=== PATIENT | female | born 1975 | race Caucasian/White ===

== ENCOUNTER 2021-12-07 13:09 | Inpatient (IN) ==
[2021-12-07] MEDS ORDERED: Iopamidol - 370 500 ML MLS IVP ONE (16:15)
[2021-12-07] MEDS ORDERED: Ondansetron 4 MG/2 ML VIAL IVP ONE (16:15)
[2021-12-07] MEDS ORDERED: 0.9 % Sodium Chloride 1,000 ML IVC ONE (16:15)
[2021-12-07] MEDS ORDERED: Morphine Sulfate 2 MG/ML SYRINGE IVP ONE (16:15)
[2021-12-07 16:45] LABS: Hematocrit 47.8 % (35.3-44.9); Hemoglobin 16.7 g/dL (11.5-15.4); Mean Corpuscular HGB Conc 34.9 g/dL (31.6-35.5); Mean Corpuscular Hemoglobin 30.5 pg (28.0-33.3); Mean Corpuscular Volume 87.4 fL (83.0-100.0); Mean Platelet Volume 11.8 fL (9.4-12.4); Platelet Count 243 K/mcL (140-400); Red Blood Count 5.47 M/mcL (3.82-4.97); White Blood Count 3.4 K/mcL (4.3-11.1)
[2021-12-07 17:06] LABS: Lymphocytes # 0.5 K/mcL (0.6-4.6); Monocytes # 0.4 K/mcL (0.0-1.3); Neutrophils # 2.4 K/mcL (1.6-8.9); Platelet Estimate Normal (Normal); Reactive Lymphocytes Present (Not Present)
[2021-12-07 17:32] LABS: Albumin 4.1 g/dL (3.5-5.7); Albumin/Globulin Ratio 1.6 (1.1-2.2); Bilirubin,Direct 0.6 mg/dL (0.0-0.2); Bilirubin,Indirect 1.2 mg/dL (0.0-1.0); Bilirubin,Total 1.8 mg/dL (0.3-1.0); Calcium 9.6 mg/dL (8.6-10.3); Globulin 2.5 g/dL (2.4-3.5); Potassium 3.5 mEq/L (3.5-5.1); Total Protein 6.6 g/dL (6.4-8.9)
[2021-12-07] MEDS ORDERED: *HR* HYDROmorphone (PF) 1 MG/ML SYRINGE IVP ONE (18:25)
[2021-12-07] MEDS ORDERED: Piperacillin/Tazobactam 3.375 GM in 0.9 % Sodium Chloride Mini Bag 100 ML IVPB ONE (18:25)
[2021-12-07] MEDS ORDERED: Ondansetron 4 MG/2 ML VIAL IVP PRN (18:50)
[2021-12-07] MEDS ORDERED: Naloxone 0.4 MG/ML INJ IVP PRN (18:50)
[2021-12-07] MEDS ORDERED: Morphine Sulfate 2 MG/ML SYRINGE IVP PRN (18:52)
[2021-12-07] MEDS ORDERED: 0.9 % Sodium Chloride 500 ML IVC ONE (22:49)
[2021-12-07] MEDS: *HR* Promethazine 25 MG/ML VIAL IM PRN (23:06)
[2021-12-07] MEDS: 0.9 % Sodium Chloride 1,000 ML IVC SCH (23:42)
[2021-12-08 01:01] LABS: Bilirubin,Urine Negative (Negative); Blood,Urine Trace (Negative); Clarity,Urine Clear (Clear); Color,Urine Yellow (Yellow); Glucose,Urine (UA) 50 mg/dL (Normal); Ketones,Urine 20 mg/dL (Negative); Leukocyte Esterase,Urine Negative (Negative); Mucus,Urine Few per lpf (None-Few); Nitrite,Urine Negative (Negative); Protein,Urine 30 mg/dL (Neg-Trace); Specific Gravity,Urine > 1.030 (1.010-1.025); Squamous Epithelial Cell,Urine Few per hpf (None-Few); WBC,Urine 0-3 per hpf (0-3)
[2021-12-08 01:03] LABS: Basophils # 0.1 K/mcL (0.0-0.2); Basophils % 0.6 %; Eosinophils % 0.5 %; Hematocrit 48.8 % (35.3-44.9); Hemoglobin 16.7 g/dL (11.5-15.4); Immature Granulocytes % 0.4 % (0-4); Lymphocytes # 0.3 K/mcL (0.6-4.6); Lymphocytes % 3.2 %; Mean Corpuscular HGB Conc 34.2 g/dL (31.6-35.5); Mean Corpuscular Hemoglobin 30.1 pg (28.0-33.3); Mean Corpuscular Volume 88.1 fL (83.0-100.0); Monocytes # 0.4 K/mcL (0.0-1.3); Monocytes % 5.4 %; Neutrophils # 7.4 K/mcL (1.6-8.9); Platelet Count 220 K/mcL (140-400); Red Blood Count 5.54 M/mcL (3.82-4.97); Red Cell Distribution Width 12.2 % (11.5-14.5); Segmented Neutrophils % 89.9 %
[2021-12-08 01:07] LABS: White Blood Count 8.2 K/mcL (4.3-11.1)
[2021-12-08 01:50] LABS: Cannabinoid Screen,Urine Positive ng/mL (Cutoff = 50); Opiate Screen,Urine Positive ng/mL (Cutoff=300)
[2021-12-08 01:51] LABS: Amphetamine Screen,Urine Negative ng/mL (Cutoff=1000); Barbiturate Screen,Urine Negative ng/mL (Cutoff=200); Cocaine Screen,Urine Negative ng/mL (Cutoff= 300); Phencyclidine Screen,Urine Negative ng/mL (Cutoff=25)
[2021-12-08 01:52] LABS: Benzodiazepines Screen,Urine Negative ng/mL (Cutoff=300)
[2021-12-08] MEDS: Piperacillin/Tazobactam 3.375 GM in 0.9 % Sodium Chloride Mini Bag 100 ML IVPB SCH ×3 (03:21→19:43)
[2021-12-08 03:57] LABS: Albumin 3.3 g/dL (3.5-5.7); Albumin/Globulin Ratio 1.5 (1.1-2.2); Bilirubin,Total 1.3 mg/dL (0.3-1.0); Chol/HDL Ratio 2.4 (0-4.9); Globulin 2.2 g/dL (2.4-3.5); Magnesium 1.6 mg/dL (1.6-2.6); Potassium 3.4 mEq/L (3.5-5.1); Total Protein 5.5 g/dL (6.4-8.9)
[2021-12-08] MEDS ORDERED: 0.9 % Sodium Chloride 500 ML IVC ONE (07:54)
[2021-12-08] MEDS: 0.9 % Sodium Chloride 1,000 ML IVC SCH ×2 (08:02→16:08)
[2021-12-08] MEDS: *HR* Promethazine 25 MG/ML VIAL IM PRN (16:01)
[2021-12-09] MEDS: 0.9 % Sodium Chloride 1,000 ML IVC SCH ×3 (00:24→15:18)
[2021-12-09] MEDS: *HR* Promethazine 25 MG/ML VIAL IM PRN ×4 (00:40→22:25)
[2021-12-09] MEDS: Simethicone 80 MG TAB.CHEW PO PRN ×2 (00:40→15:58)
[2021-12-09] MEDS: Piperacillin/Tazobactam 3.375 GM in 0.9 % Sodium Chloride Mini Bag 100 ML IVPB SCH ×3 (02:00→19:00)
[2021-12-09 06:13] LABS: Basophils # 0.1 K/mcL (0.0-0.2); Basophils % 0.5 %; Hematocrit 40.2 % (35.3-44.9); Immature Granulocytes % 1.6 % (0-4); Lymphocytes % 2.6 %; Mean Corpuscular HGB Conc 33.3 g/dL (31.6-35.5); Mean Corpuscular Hemoglobin 29.8 pg (28.0-33.3); Mean Corpuscular Volume 89.5 fL (83.0-100.0); Mean Platelet Volume 12.2 fL (9.4-12.4); Monocytes # 0.4 K/mcL (0.0-1.3); Monocytes % 2.7 %; Neutrophils # 12.3 K/mcL (1.6-8.9); Platelet Count 185 K/mcL (140-400); Red Blood Count 4.49 M/mcL (3.82-4.97); Red Cell Distribution Width 12.6 % (11.5-14.5); Segmented Neutrophils % 92.6 %
[2021-12-09 06:19] LABS: Hemoglobin 13.4 g/dL (11.5-15.4); Lymphocytes # 0.4 K/mcL (0.6-4.6); White Blood Count 13.3 K/mcL (4.3-11.1)
[2021-12-09 06:53] LABS: BUN/Creatinine Ratio 18 (6-26); Bilirubin,Total 1.1 mg/dL (0.3-1.0); Blood Urea Nitrogen 14 mg/dL (6-20); Calcium 7.5 mg/dL (8.6-10.3); Carbon Dioxide 25 mEq/L (23-29); Chloride 109 mEq/L (98-107); Glucose 85 mg/dL (70-105); Osmolality,Calculated 286 (280-300); Potassium 3.3 mEq/L (3.5-5.1); Sodium 138 mEq/L (136-145)
[2021-12-09 06:54] LABS: Alanine Aminotransferase 10 Units/L (7-52); Albumin 2.8 g/dL (3.5-5.7); Alkaline Phosphatase 61 Units/L (34-104); Aspartate Amino Transferase 33 Units/L (13-39)
[2021-12-09 07:33] LABS: Albumin/Globulin Ratio 1.3 (1.1-2.2); Globulin 2.2 g/dL (2.4-3.5)
[2021-12-09] MEDS ORDERED: Potassium Chloride Elixir 20 MEQ/15 ML UDC PO ONE (07:51)
[2021-12-09 09:21] LABS: Magnesium 1.7 mg/dL (1.6-2.6); Phosphorous 1.5 mg/dL (2.7-4.5)
[2021-12-09] MEDS ORDERED: Iopamidol - 370 500 ML MLS IVP ONE ×2 (10:36→11:15)
[2021-12-09] MEDS: polyethylene glycoL 3350 17 GM POWD.PACK PO SCH ×2 (11:08→21:40)
[2021-12-10 03:10] LABS: Basophils % 0.2 %; Hematocrit 35.3 % (35.3-44.9); Hemoglobin 12.2 g/dL (11.5-15.4); Immature Granulocytes % 0.5 % (0-4); Lymphocytes # 0.4 K/mcL (0.6-4.6); Lymphocytes % 2.8 %; Mean Corpuscular HGB Conc 34.6 g/dL (31.6-35.5); Mean Corpuscular Hemoglobin 30.7 pg (28.0-33.3); Mean Corpuscular Volume 88.7 fL (83.0-100.0); Mean Platelet Volume 11.9 fL (9.4-12.4); Monocytes # 0.3 K/mcL (0.0-1.3); Monocytes % 2.5 %; Neutrophils # 12.5 K/mcL (1.6-8.9); Platelet Count 173 K/mcL (140-400); Red Blood Count 3.98 M/mcL (3.82-4.97); Red Cell Distribution Width 12.5 % (11.5-14.5); White Blood Count 13.3 K/mcL (4.3-11.1)
[2021-12-10 03:22] LABS: Alanine Aminotransferase 15 Units/L (7-52); Albumin 2.7 g/dL (3.5-5.7); Albumin/Globulin Ratio 1.2 (1.1-2.2); Alkaline Phosphatase 87 Units/L (34-104); Aspartate Amino Transferase 54 Units/L (13-39); BUN/Creatinine Ratio 15 (6-26); Blood Urea Nitrogen 10 mg/dL (6-20); Calcium 8.3 mg/dL (8.6-10.3); Carbon Dioxide 23 mEq/L (23-29); Chloride 108 mEq/L (98-107); Globulin 2.3 g/dL (2.4-3.5); Glucose 68 mg/dL (70-105); Magnesium 2.2 mg/dL (1.6-2.6); Osmolality,Calculated 283 (280-300); Phosphorous 1.4 mg/dL (2.7-4.5); Potassium 3.2 mEq/L (3.5-5.1); Sodium 138 mEq/L (136-145)
[2021-12-10] MEDS: Piperacillin/Tazobactam 3.375 GM in 0.9 % Sodium Chloride Mini Bag 100 ML IVPB SCH ×3 (03:30→20:27)
[2021-12-10 03:49] LABS: Platelet Estimate Normal (Normal)
[2021-12-10] MEDS: 0.9 % Sodium Chloride 1,000 ML IVC SCH ×2 (06:55→17:51)
[2021-12-10] MEDS: *HR* Promethazine 25 MG/ML VIAL IM PRN (06:57)
[2021-12-10] MEDS: polyethylene glycoL 3350 17 GM POWD.PACK PO SCH ×2 (09:37→20:29)
[2021-12-10] MEDS ORDERED: CefOXitin 1,000 MG VIAL ONE ×2 (12:22→13:36)
[2021-12-10] MEDS ORDERED: *HR* FentaNYL (PF) 100 MCG/2 ML VIAL ONE (12:27)
[2021-12-10] MEDS ORDERED: *HR* Propofol 200 MG/20 ML VIAL IVP ONE (12:27)
[2021-12-10] MEDS ORDERED: *HR* Midazolam HCl 2 MG/2 ML VIAL ONE (12:27)
[2021-12-10] MEDS ORDERED: Lidocaine -MPF 2% 2 ML VIAL ONE (12:31)
[2021-12-10] MEDS ORDERED: Lidocaine HCL 4 ML Topical Solution (Laryng-O-Jet Kit Sterile Pak) TP ONE (12:32)
[2021-12-10] MEDS ORDERED: *HR* Rocuronium Bromide 50 MG/5 ML VIAL ONE (12:32)
[2021-12-10] MEDS ORDERED: *HR* HYDROmorphone PF 0.5 MG/0.5 ML SYRINGE IVP PRN ×2 (12:42→16:29)
[2021-12-10] MEDS ORDERED: Ondansetron 4 MG/2 ML VIAL IVP PRN ×2 (12:42→16:29)
[2021-12-10] MEDS ORDERED: Ketamine HCL *QUVA* 50mg (1mL) SYRINGE ONE (13:28)
[2021-12-10] MEDS ORDERED: Ondansetron 4 MG/2 ML VIAL ONE (13:28)
[2021-12-10] MEDS ORDERED: Acetaminophen IV 1,000 MG/100 ML BAG IVPB ONE (13:30)
[2021-12-10] MEDS ORDERED: *HR* Metoprolol 5 MG/5 ML VIAL IVP ONE (13:37)
[2021-12-10] MEDS ORDERED: Sugammadex Sodium 200 MG/2 ML VIAL IV ONE (14:20)
[2021-12-10] MEDS ORDERED: Ketorolac 30 MG/ML VIAL ONE (14:21)
[2021-12-10] MEDS ORDERED: *HR* HYDROMORPHONE 2 MG/ML VIAL ONE (14:39)
[2021-12-10] MEDS ORDERED: Naloxone 0.4 MG/ML INJ IVP PRN (16:29)
[2021-12-10] MEDS: Morphine Sulfate 2 MG/ML SYRINGE IVP PRN (22:59)
[2021-12-11] MEDS: 0.9 % Sodium Chloride 1,000 ML IVC SCH ×2 (02:25→10:33)
[2021-12-11] MEDS: Piperacillin/Tazobactam 3.375 GM in 0.9 % Sodium Chloride Mini Bag 100 ML IVPB SCH ×3 (02:32→22:00)
[2021-12-11] MEDS: *HR* Promethazine 25 MG/ML VIAL IM PRN (02:34)
[2021-12-11] MEDS: Fluconazole 200 MG/100 ML 200 MG/100 ML BAG IVPB SCH (10:33)
[2021-12-11 11:32] LABS: Basophils % 0.2 %; Hematocrit 36.6 % (35.3-44.9); Hemoglobin 12.3 g/dL (11.5-15.4); Immature Granulocytes % 1.6 % (0-4); Lymphocytes # 0.5 K/mcL (0.6-4.6); Lymphocytes % 3.6 %; Mean Corpuscular HGB Conc 33.6 g/dL (31.6-35.5); Mean Corpuscular Hemoglobin 29.9 pg (28.0-33.3); Mean Corpuscular Volume 88.8 fL (83.0-100.0); Mean Platelet Volume 11.2 fL (9.4-12.4); Monocytes # 0.7 K/mcL (0.0-1.3); Neutrophils # 13.1 K/mcL (1.6-8.9); Platelet Count 216 K/mcL (140-400); Red Blood Count 4.12 M/mcL (3.82-4.97); Red Cell Distribution Width 13.3 % (11.5-14.5); Segmented Neutrophils % 89.6 %; White Blood Count 14.6 K/mcL (4.3-11.1)
[2021-12-11 11:48] LABS: Alanine Aminotransferase 13 Units/L (7-52); Albumin 2.2 g/dL (3.5-5.7); Alkaline Phosphatase 66 Units/L (34-104); Aspartate Amino Transferase 37 Units/L (13-39); BUN/Creatinine Ratio 16 (6-26); Bilirubin,Total 0.4 mg/dL (0.3-1.0); Blood Urea Nitrogen 10 mg/dL (6-20); Calcium 7.4 mg/dL (8.6-10.3); Carbon Dioxide 21 mEq/L (23-29); Chloride 113 mEq/L (98-107); Globulin 2.1 g/dL (2.4-3.5); Glucose 93 mg/dL (70-105); Osmolality,Calculated 291 (280-300); Potassium 3.5 mEq/L (3.5-5.1); Sodium 141 mEq/L (136-145); Total Protein 4.3 g/dL (6.4-8.9)
[2021-12-11 11:49] LABS: Magnesium 2.1 mg/dL (1.6-2.6); Phosphorous 1.3 mg/dL (2.7-4.5)
[2021-12-11] MEDS ORDERED: Potassium Phosphate 44 MEQ in 0.9 % Sodium Chloride 250 ML IVPB ONE (11:54)
[2021-12-11] MEDS: polyethylene glycoL 3350 17 GM POWD.PACK PO SCH ×3 (13:17→22:44)
[2021-12-11] MEDS: Morphine Sulfate 2 MG/ML SYRINGE IVP PRN ×2 (13:27→17:48)
[2021-12-12] MEDS: Piperacillin/Tazobactam 3.375 GM in 0.9 % Sodium Chloride Mini Bag 100 ML IVPB SCH ×3 (02:36→22:23)
[2021-12-12] MEDS: 0.9 % Sodium Chloride 1,000 ML IVC SCH (02:37)
[2021-12-12] MEDS: Morphine Sulfate 2 MG/ML SYRINGE IVP PRN (02:38)
[2021-12-12 05:01] LABS: Basophils % 0.2 %; Eosinophils % 0.1 %; Hematocrit 30.3 % (35.3-44.9); Immature Granulocytes % 0.9 % (0-4); Lymphocytes # 0.9 K/mcL (0.6-4.6); Mean Corpuscular HGB Conc 33.7 g/dL (31.6-35.5); Mean Corpuscular Hemoglobin 29.7 pg (28.0-33.3); Mean Corpuscular Volume 88.1 fL (83.0-100.0); Monocytes # 0.7 K/mcL (0.0-1.3); Monocytes % 6.9 %; Platelet Count 183 K/mcL (140-400); Red Blood Count 3.44 M/mcL (3.82-4.97); Red Cell Distribution Width 13.4 % (11.5-14.5); Segmented Neutrophils % 82.9 %; White Blood Count 9.7 K/mcL (4.3-11.1)
[2021-12-12 05:05] LABS: Hemoglobin 10.2 g/dL (11.5-15.4)
[2021-12-12 05:19] LABS: BUN/Creatinine Ratio 20 (6-26); Blood Urea Nitrogen 11 mg/dL (6-20); Calcium 7.6 mg/dL (8.6-10.3); Carbon Dioxide 22 mEq/L (23-29); Chloride 116 mEq/L (98-107); Glucose 92 mg/dL (70-105); Osmolality,Calculated 299 (280-300); Potassium 3.4 mEq/L (3.5-5.1); Sodium 145 mEq/L (136-145)
[2021-12-12 05:35] LABS: Platelet Estimate Normal (Normal)
[2021-12-12] MEDS: Ondansetron 4 MG/2 ML VIAL IVP PRN ×2 (09:31→18:32)
[2021-12-12] MEDS: Pantoprazole 40 MG VIAL IVP SCH (09:32)
[2021-12-12] MEDS: D5% in 0.45% NACL 1,000 ML IVC SCH ×2 (09:39→18:13)
[2021-12-12] MEDS: Fluconazole 200 MG/100 ML 200 MG/100 ML BAG IVPB SCH (09:43)
[2021-12-12] MEDS: polyethylene glycoL 3350 17 GM POWD.PACK PO SCH ×2 (09:59→22:25)
[2021-12-12 12:43] LABS: Magnesium 1.9 mg/dL (1.6-2.6); Phosphorous 1.4 mg/dL (2.7-4.5)
[2021-12-12] MEDS: *HR* Promethazine 25 MG/ML VIAL IM PRN (21:07)
[2021-12-13] MEDS: D5% in 0.45% NACL 1,000 ML IVC SCH ×3 (02:23→20:19)
[2021-12-13] MEDS: *HR* Promethazine 25 MG/ML VIAL IM PRN ×2 (02:34→10:23)
[2021-12-13] MEDS: Piperacillin/Tazobactam 3.375 GM in 0.9 % Sodium Chloride Mini Bag 100 ML IVPB SCH ×3 (03:36→18:20)
[2021-12-13 04:11] LABS: Hematocrit 28.6 % (35.3-44.9); Hemoglobin 9.8 g/dL (11.5-15.4); Mean Corpuscular HGB Conc 34.3 g/dL (31.6-35.5); Mean Corpuscular Hemoglobin 29.9 pg (28.0-33.3); Mean Corpuscular Volume 87.2 fL (83.0-100.0); Mean Platelet Volume 11.1 fL (9.4-12.4); Platelet Count 211 K/mcL (140-400); Red Blood Count 3.28 M/mcL (3.82-4.97); Red Cell Distribution Width 13.2 % (11.5-14.5); White Blood Count 7.7 K/mcL (4.3-11.1)
[2021-12-13 04:32] LABS: BUN/Creatinine Ratio 18 (6-26); Blood Urea Nitrogen 9 mg/dL (6-20); Calcium 7.1 mg/dL (8.6-10.3); Carbon Dioxide 25 mEq/L (23-29); Chloride 111 mEq/L (98-107); Glucose 137 mg/dL (70-105); Osmolality,Calculated 291 (280-300); Sodium 140 mEq/L (136-145)
[2021-12-13 04:42] LABS: Eosinophils # 0.2 K/mcL (0.0-0.6)
[2021-12-13 04:43] LABS: Monocytes # 0.4 K/mcL (0.0-1.3); Neutrophils # 6.2 K/mcL (1.6-8.9); Platelet Estimate Normal (Normal)
[2021-12-13] MEDS: Fluconazole 200 MG/100 ML 200 MG/100 ML BAG IVPB SCH (10:12)
[2021-12-13] MEDS: polyethylene glycoL 3350 17 GM POWD.PACK PO SCH ×2 (10:13→20:14)
[2021-12-13] MEDS: Pantoprazole 40 MG VIAL IVP SCH (10:14)
[2021-12-13] MEDS: Metoclopramide 10 MG/2 ML VIAL IVP SCH ×3 (13:15→23:42)
[2021-12-13] MEDS ORDERED: Fluconazole 200 MG/100 ML 200 MG/100 ML BAG IVPB STA (15:53)
[2021-12-14] MEDS: *HR* Promethazine 25 MG/ML VIAL IM PRN (01:00)
[2021-12-14] MEDS: Piperacillin/Tazobactam 3.375 GM in 0.9 % Sodium Chloride Mini Bag 100 ML IVPB SCH ×3 (04:43→21:21)
[2021-12-14 05:05] LABS: Basophils % 0.1 %; Eosinophils # 0.1 K/mcL (0.0-0.6); Eosinophils % 1.6 %; Hematocrit 25.9 % (35.3-44.9); Hemoglobin 8.8 g/dL (11.5-15.4); Immature Granulocytes % 1.4 % (0-4); Lymphocytes % 12.5 %; Mean Corpuscular Hemoglobin 29.6 pg (28.0-33.3); Mean Corpuscular Volume 87.2 fL (83.0-100.0); Mean Platelet Volume 11.2 fL (9.4-12.4); Monocytes # 0.5 K/mcL (0.0-1.3); Monocytes % 6.2 %; Platelet Count 216 K/mcL (140-400); Red Blood Count 2.97 M/mcL (3.82-4.97); Segmented Neutrophils % 78.2 %; White Blood Count 7.6 K/mcL (4.3-11.1)
[2021-12-14] MEDS: Metoclopramide 10 MG/2 ML VIAL IVP SCH ×3 (05:06→17:30)
[2021-12-14] MEDS: D5% in 0.45% NACL 1,000 ML IVC SCH (05:16)
[2021-12-14 05:25] LABS: BUN/Creatinine Ratio 9 (6-26); Blood Urea Nitrogen 4 mg/dL (6-20); Calcium 6.6 mg/dL (8.6-10.3); Carbon Dioxide 25 mEq/L (23-29); Chloride 103 mEq/L (98-107); Glucose 436 mg/dL (70-105); Magnesium 1.5 mg/dL (1.6-2.6); Osmolality,Calculated 292 (280-300); Potassium 2.6 mEq/L (3.5-5.1); Sodium 133 mEq/L (136-145)
[2021-12-14] MEDS: polyethylene glycoL 3350 17 GM POWD.PACK PO SCH ×2 (08:21→21:11)
[2021-12-14] MEDS: Fluconazole 400 MG/200 ML 400 MG/200 ML BAG IVPB SCH (08:22)
[2021-12-14] MEDS: Pantoprazole 40 MG VIAL IVP SCH (08:23)
[2021-12-14] MEDS ORDERED: D5% in Water 1,000 ML IVC PRN (12:08)
[2021-12-14] MEDS ORDERED: *HR* Dextrose 50 % in Water (Syg) 50 ML SYRINGE IVP PRN (12:08)
[2021-12-14] MEDS ORDERED: Dextrose Gel 15 GM/37.5 ML TUBE PO PRN ×2 (12:08)
[2021-12-14] MEDS ORDERED: D10% in Water 500 ML IVC PRN (12:40)
[2021-12-14] MEDS: 0.9 % Sodium Chloride 1,000 ML IVC SCH (13:03)
[2021-12-14] MEDS ORDERED: Fat Emulsion 250 ML IVPB SCH (17:00)
[2021-12-14] MEDS ORDERED: Clinimix E 5%-15% SOLUTION 2,000 ML with MVI, adult with vitamin K 10 ML IVC SCH (17:00)
[2021-12-14] MEDS: Insulin LISPRO 300 UNITS/3 ML VIAL SUBQ SCH (19:07)
[2021-12-15] MEDS: Metoclopramide 10 MG/2 ML VIAL IVP SCH ×5 (00:18→23:48)
[2021-12-15] MEDS: Insulin LISPRO 300 UNITS/3 ML VIAL SUBQ SCH ×5 (01:07→23:43)
[2021-12-15] MEDS: 0.9 % Sodium Chloride 1,000 ML IVC SCH ×2 (02:32→16:07)
[2021-12-15] MEDS: Piperacillin/Tazobactam 3.375 GM in 0.9 % Sodium Chloride Mini Bag 100 ML IVPB SCH ×3 (03:47→18:20)
[2021-12-15 05:59] LABS: Alanine Aminotransferase 20 Units/L (7-52); Albumin 2.1 g/dL (3.5-5.7); Albumin/Globulin Ratio 0.9 (1.1-2.2); Alkaline Phosphatase 44 Units/L (34-104); Aspartate Amino Transferase 37 Units/L (13-39); BUN/Creatinine Ratio 9 (6-26); Bilirubin,Total 0.6 mg/dL (0.3-1.0); Blood Urea Nitrogen 4 mg/dL (6-20); Calcium 7.1 mg/dL (8.6-10.3); Carbon Dioxide 24 mEq/L (23-29); Chloride 99 mEq/L (98-107); Globulin 2.4 g/dL (2.4-3.5); Glucose 409 mg/dL (70-105); Osmolality,Calculated 282 (280-300); Phosphorous 3.8 mg/dL (2.7-4.5); Potassium 3.9 mEq/L (3.5-5.1); Sodium 129 mEq/L (136-145); Total Protein 4.5 g/dL (6.4-8.9); Triglycerides 609 mg/dL (< 150)
[2021-12-15] MEDS: Ondansetron 4 MG/2 ML VIAL IVP PRN (09:10)
[2021-12-15] MEDS: Fluconazole 400 MG/200 ML 400 MG/200 ML BAG IVPB SCH (09:13)
[2021-12-15] MEDS: Pantoprazole 40 MG VIAL IVP SCH (09:14)
[2021-12-15] MEDS: Simethicone 80 MG TAB.CHEW PO PRN ×2 (11:07→16:27)
[2021-12-15] MEDS ORDERED: Clinimix E 5%-15% SOLUTION 2,000 ML with MVI, adult with vitamin K 10 ML IVC SCH (17:00)
[2021-12-16] MEDS: Simethicone 80 MG TAB.CHEW PO PRN (03:34)
[2021-12-16] MEDS: Piperacillin/Tazobactam 3.375 GM in 0.9 % Sodium Chloride Mini Bag 100 ML IVPB SCH ×3 (04:15→19:01)
[2021-12-16 04:58] LABS: Alanine Aminotransferase 23 Units/L (7-52); Albumin 2.1 g/dL (3.5-5.7); Albumin/Globulin Ratio 0.8 (1.1-2.2); Alkaline Phosphatase 43 Units/L (34-104); Aspartate Amino Transferase 38 Units/L (13-39); BUN/Creatinine Ratio 15 (6-26); Bilirubin,Total 0.6 mg/dL (0.3-1.0); Blood Urea Nitrogen 6 mg/dL (6-20); Calcium 7.7 mg/dL (8.6-10.3); Carbon Dioxide 28 mEq/L (23-29); Chloride 105 mEq/L (98-107); Globulin 2.5 g/dL (2.4-3.5); Glucose 93 mg/dL (70-105); Magnesium 1.8 mg/dL (1.6-2.6); Osmolality,Calculated 283 (280-300); Potassium 3.2 mEq/L (3.5-5.1); Sodium 138 mEq/L (136-145); Total Protein 4.6 g/dL (6.4-8.9)
[2021-12-16] MEDS: Insulin LISPRO 300 UNITS/3 ML VIAL SUBQ SCH ×4 (06:05→23:37)
[2021-12-16] MEDS: Metoclopramide 10 MG/2 ML VIAL IVP SCH ×4 (06:09→23:38)
[2021-12-16] MEDS: 0.9 % Sodium Chloride 1,000 ML IVC SCH (06:10)
[2021-12-16] MEDS ORDERED: Iopamidol - 370 500 ML MLS IVP ONE (08:45)
[2021-12-16] MEDS: Ondansetron 4 MG/2 ML VIAL IVP PRN (11:11)
[2021-12-16] MEDS: Pantoprazole 40 MG VIAL IVP SCH (11:12)
[2021-12-16] MEDS: Fluconazole 400 MG/200 ML 400 MG/200 ML BAG IVPB SCH (11:12)
[2021-12-16] MEDS ORDERED: 0.9 % Sodium Chloride 500 ML ONE (14:28)
[2021-12-16] MEDS ORDERED: *HR* FentaNYL (PF) 100 MCG/2 ML VIAL ONE (14:39)
[2021-12-16] MEDS ORDERED: *HR* FentaNYL (PF) 100 MCG/2 ML VIAL IVP ONE (14:45)
[2021-12-16] MEDS: Furosemide 20 MG/2 ML VIAL IVP SCH ×2 (16:29→21:04)
[2021-12-16] MEDS ORDERED: Clinimix E 5%-15% SOLUTION 2,000 ML with MVI, adult with vitamin K 10 ML IVC SCH (17:00)
[2021-12-17] MEDS: Piperacillin/Tazobactam 3.375 GM in 0.9 % Sodium Chloride Mini Bag 100 ML IVPB SCH ×3 (03:27→17:34)
[2021-12-17 04:22] LABS: Alanine Aminotransferase 33 Units/L (7-52); Albumin 2.6 g/dL (3.5-5.7); Albumin/Globulin Ratio 0.9 (1.1-2.2); Alkaline Phosphatase 60 Units/L (34-104); Aspartate Amino Transferase 55 Units/L (13-39); BUN/Creatinine Ratio 16 (6-26); Bilirubin,Total 0.6 mg/dL (0.3-1.0); Blood Urea Nitrogen 8 mg/dL (6-20); Calcium 8.3 mg/dL (8.6-10.3); Carbon Dioxide 30 mEq/L (23-29); Chloride 100 mEq/L (98-107); Globulin 2.8 g/dL (2.4-3.5); Glucose 104 mg/dL (70-105); Magnesium 1.9 mg/dL (1.6-2.6); Osmolality,Calculated 281 (280-300); Phosphorous 3.1 mg/dL (2.7-4.5); Potassium 3.6 mEq/L (3.5-5.1); Sodium 136 mEq/L (136-145); Total Protein 5.4 g/dL (6.4-8.9)
[2021-12-17] MEDS: Insulin LISPRO 300 UNITS/3 ML VIAL SUBQ SCH ×3 (05:49→18:08)
[2021-12-17] MEDS: Metoclopramide 10 MG/2 ML VIAL IVP SCH ×3 (05:51→17:35)
[2021-12-17 08:35] LABS: Basophils % 0.2 %; Eosinophils # 0.1 K/mcL (0.0-0.6); Hemoglobin 9.2 g/dL (11.5-15.4); Immature Granulocytes % 0.6 % (0-4); Lymphocytes % 10.2 %; Mean Corpuscular HGB Conc 34.1 g/dL (31.6-35.5); Mean Corpuscular Hemoglobin 29.6 pg (28.0-33.3); Mean Corpuscular Volume 86.8 fL (83.0-100.0); Mean Platelet Volume 10.8 fL (9.4-12.4); Monocytes # 0.8 K/mcL (0.0-1.3); Monocytes % 8.1 %; Neutrophils # 7.6 K/mcL (1.6-8.9); Platelet Count 339 K/mcL (140-400); Red Blood Count 3.11 M/mcL (3.82-4.97); Segmented Neutrophils % 79.9 %; White Blood Count 9.4 K/mcL (4.3-11.1)
[2021-12-17] MEDS: Fluconazole 400 MG/200 ML 400 MG/200 ML BAG IVPB SCH (08:39)
[2021-12-17] MEDS: Furosemide 20 MG/2 ML VIAL IVP SCH ×2 (08:40→21:29)
[2021-12-17] MEDS: Pantoprazole 40 MG VIAL IVP SCH ×2 (08:44→17:40)
[2021-12-17] MEDS: Simethicone 80 MG TAB.CHEW PO PRN (15:38)
[2021-12-17] MEDS ORDERED: Clinimix E 5%-15% SOLUTION 2,000 ML with MVI, adult with vitamin K 10 ML IVC SCH (17:00)
[2021-12-17] MEDS: Morphine Sulfate 2 MG/ML SYRINGE IVP PRN (18:08)
[2021-12-18] MEDS: Metoclopramide 10 MG/2 ML VIAL IVP SCH ×4 (00:09→17:03)
[2021-12-18] MEDS: Piperacillin/Tazobactam 3.375 GM in 0.9 % Sodium Chloride Mini Bag 100 ML IVPB SCH ×3 (03:39→18:46)
[2021-12-18] MEDS: Pantoprazole 40 MG VIAL IVP SCH ×2 (06:18→17:03)
[2021-12-18] MEDS: Insulin LISPRO 300 UNITS/3 ML VIAL SUBQ SCH ×4 (08:02→17:03)
[2021-12-18 09:15] LABS: Alanine Aminotransferase 87 Units/L (7-52); Albumin 2.8 g/dL (3.5-5.7); Alkaline Phosphatase 73 Units/L (34-104); Aspartate Amino Transferase 137 Units/L (13-39); BUN/Creatinine Ratio 25 (6-26); Bilirubin,Total 0.8 mg/dL (0.3-1.0); Blood Urea Nitrogen 13 mg/dL (6-20); Calcium 8.6 mg/dL (8.6-10.3); Carbon Dioxide 28 mEq/L (23-29); Chloride 100 mEq/L (98-107); Globulin 2.9 g/dL (2.4-3.5); Glucose 100 mg/dL (70-105); Osmolality,Calculated 280 (280-300); Phosphorous 3.9 mg/dL (2.7-4.5); Potassium 3.8 mEq/L (3.5-5.1); Sodium 135 mEq/L (136-145); Total Protein 5.7 g/dL (6.4-8.9)
[2021-12-18] MEDS: Fluconazole 400 MG/200 ML 400 MG/200 ML BAG IVPB SCH (09:29)
[2021-12-18] MEDS: Furosemide 20 MG/2 ML VIAL IVP SCH (09:30)
[2021-12-18] MEDS: Ondansetron 4 MG/2 ML VIAL IVP PRN ×2 (09:37→21:22)
[2021-12-18] MEDS ORDERED: Clinimix E 5%-15% SOLUTION 2,000 ML with MVI, adult with vitamin K 10 ML IVC SCH (17:00)
[2021-12-19] MEDS: Insulin LISPRO 300 UNITS/3 ML VIAL SUBQ SCH ×4 (00:22→18:10)
[2021-12-19] MEDS: Metoclopramide 10 MG/2 ML VIAL IVP SCH ×4 (00:38→18:01)
[2021-12-19] MEDS: Piperacillin/Tazobactam 3.375 GM in 0.9 % Sodium Chloride Mini Bag 100 ML IVPB SCH ×3 (02:33→17:56)
[2021-12-19] MEDS: Pantoprazole 40 MG VIAL IVP SCH ×2 (05:24→18:01)
[2021-12-19 06:10] LABS: Alanine Aminotransferase 112 Units/L (7-52); Albumin 2.6 g/dL (3.5-5.7); Alkaline Phosphatase 84 Units/L (34-104); Aspartate Amino Transferase 152 Units/L (13-39); BUN/Creatinine Ratio 27 (6-26); Bilirubin,Total 0.6 mg/dL (0.3-1.0); Blood Urea Nitrogen 17 mg/dL (6-20); Calcium 8.4 mg/dL (8.6-10.3); Carbon Dioxide 26 mEq/L (23-29); Chloride 96 mEq/L (98-107); Globulin 2.7 g/dL (2.4-3.5); Glucose 575 mg/dL (70-105); Magnesium 2.2 mg/dL (1.6-2.6); Osmolality,Calculated 292 (280-300); Phosphorous 5.3 mg/dL (2.7-4.5); Potassium 4.9 mEq/L (3.5-5.1); Sodium 127 mEq/L (136-145); Total Protein 5.3 g/dL (6.4-8.9)
[2021-12-19 07:19] LABS: BUN/Creatinine Ratio 30 (6-26); Blood Urea Nitrogen 18 mg/dL (6-20); Calcium 8.5 mg/dL (8.6-10.3); Carbon Dioxide 28 mEq/L (23-29); Chloride 100 mEq/L (98-107); Glucose 102 mg/dL (70-105); Osmolality,Calculated 276 (280-300); Potassium 4.1 mEq/L (3.5-5.1); Sodium 132 mEq/L (136-145)
[2021-12-19] MEDS: Fluconazole 400 MG/200 ML 400 MG/200 ML BAG IVPB SCH (10:30)
[2021-12-19] MEDS: Simethicone 80 MG TAB.CHEW PO PRN (11:02)
[2021-12-19] MEDS: Furosemide 40 MG TABLET PO SCH (11:02)
[2021-12-19] MEDS: Ondansetron 4 MG/2 ML VIAL IVP PRN (11:06)
[2021-12-19] MEDS ORDERED: Clinimix E 5%-15% SOLUTION 2,000 ML with MVI, adult with vitamin K 10 ML IVC SCH (17:00)
[2021-12-19] MEDS ORDERED: Clinimix 5%-20% SOLUTION 2,000 ML with MVI, adult with vitamin K 10 ML, Sodium Phosph... IVC SCH (17:00)
[2021-12-20] MEDS: Metoclopramide 10 MG/2 ML VIAL IVP SCH ×2 (00:07→05:39)
[2021-12-20] MEDS: Insulin LISPRO 300 UNITS/3 ML VIAL SUBQ SCH ×4 (00:31→17:31)
[2021-12-20] MEDS: Piperacillin/Tazobactam 3.375 GM in 0.9 % Sodium Chloride Mini Bag 100 ML IVPB SCH ×2 (02:33→11:38)
[2021-12-20 05:19] LABS: Alanine Aminotransferase 217 Units/L (7-52); Albumin 2.9 g/dL (3.5-5.7); Albumin/Globulin Ratio 0.9 (1.1-2.2); Alkaline Phosphatase 153 Units/L (34-104); Aspartate Amino Transferase 255 Units/L (13-39); BUN/Creatinine Ratio 27 (6-26); Bilirubin,Total 0.9 mg/dL (0.3-1.0); Blood Urea Nitrogen 17 mg/dL (6-20); Calcium 8.4 mg/dL (8.6-10.3); Carbon Dioxide 28 mEq/L (23-29); Chloride 96 mEq/L (98-107); Globulin 3.2 g/dL (2.4-3.5); Glucose 90 mg/dL (70-105); Osmolality,Calculated 275 (280-300); Phosphorous 3.6 mg/dL (2.7-4.5); Potassium 3.7 mEq/L (3.5-5.1); Sodium 132 mEq/L (136-145); Total Protein 6.1 g/dL (6.4-8.9)
[2021-12-20] MEDS: Pantoprazole 40 MG VIAL IVP SCH (05:39)
[2021-12-20] MEDS: Furosemide 40 MG TABLET PO SCH (10:24)
[2021-12-20] MEDS: Fluconazole 400 MG/200 ML 400 MG/200 ML BAG IVPB SCH (10:25)
[2021-12-20 16:51] VITALS: BP 111/77; PULSE 100; TEMP 98.7; O2SAT 96
[2021-12-21] MEDS ORDERED: Fluconazole 100 MG TABLET PO SCH (09:00)
== END 2021-12-20 23:59 | disposition other institution (70) | DRG 710 ==
LOC: 3ANU 13:09 → EMEROOARM 13:09 → SUATTDRO 19:28 → OBSVTOIN 19:28 → 3ANU 20:50
PROVIDERS: ADMIT Hospitalist; ATTEND Hospitalist
PROC: IRDRAIN (2021-12-16 13:20)